=== PATIENT | female | born 1985 | race African-American/Black ===

== ENCOUNTER 2023-10-30 09:05 | Emergency (ER) | payer MEDICAID ==
[~2023-10-30] VITALS: Ht 152.4 cm; Wt 81.0 kg
[~2023-10-30 09:05] MED LIST: LEVO500T2 PO; TOPUD PO
[2023-10-30 09:08] VITALS: BP 97/71; PULSE 79; RESP 16; TEMP 98.9; O2SAT 100
[2023-10-30 09:38] LABS: CLARITY URINE CLOUDY (CLEAR); COLOR URINE YELLOW (YELLOW); GLUCOSE URINE NEGATIVE (NEGATIVE); KETONES URINE NEGATIVE (NEGATIVE); LEUKOCYTE ESTERASE URINE 3+ (NEGATIVE); NITRITE URINE POSITIVE (NEGATIVE); OCCULT BLOOD URINE TRACE (NEGATIVE); PH URINE 6.5 (4.5-8.0); PROTEIN URINE NEGATIVE (NEGATIVE); SPECIFIC GRAVITY URINE 1.011 (1.005-1.030); UROBILINOGEN URINE 0.2 E.U./dL (0.2-1.0)
[2023-10-30] MEDS ORDERED: CEPH500C2 MT (10:14)
[2023-10-30] MEDS ORDERED: DIPH25CA83 MT (10:14)
[2023-10-30 10:21] LABS: SQUAMOUS EPITHELIAL CELL URINE 1+ /lpf (RARE/1+); WBC URINE 15-25 /hpf (0-2)
[2023-10-30 10:22] LABS: BACTERIA URINE 4+; YEAST URINE NONE SEEN
[2023-10-30] MEDS ORDERED: DIPH25TA62 MT (10:25)
== END 2023-10-30 10:37 | disposition home or self-care (01) ==
LOC: ER 09:05
DX: T78.40XA Allergy, unspecified, initial encounter (principal); N39.0 Urinary tract infection, site not specified; J45.909 Unspecified asthma, uncomplicated; F12.90 Cannabis use, unspecified, uncomplicated; Z98.890 Other specified postprocedural states
CPT/HCPCS: 81003; 81025; 87077; 87186; 99283

== ENCOUNTER 2024-06-16 10:01 | Emergency (ER) | payer MEDICAID ==
[~2024-06-16] VITALS: Ht 152.4 cm; Wt 80.0 kg
[~2024-06-16 10:01] MED LIST changes: +CEPH500C2 MT; +DIPH25CA83 MT; +DIPH25TA62 MT
[2024-06-16 10:08] VITALS: O2SAT 99
[2024-06-16 10:11] VITALS: BP 122/98; PULSE 87; RESP 16; TEMP 98.4; O2SAT 100
[2024-06-16] MEDS: KETOROLAC 30MG/ML VIAL IM ONE (12:05)
[2024-06-16] MEDS ORDERED: IBUP-2029 MT (13:44)
== END 2024-06-16 14:05 | disposition home or self-care (01) ==
LOC: ER 10:29
DX: R51.9 Headache, unspecified (principal); M54.50 Low back pain, unspecified; F12.10 Cannabis abuse, uncomplicated; J45.909 Unspecified asthma, uncomplicated; Z79.899 Other long term (current) drug therapy; Z91.012 Allergy to eggs; W10.9XXA Fall (on) (from) unspecified stairs and steps, initial encounter; Y93.89 Activity, other specified; Y92.89 Other specified places as the place of occurrence of the external cause; Y99.8 Other external cause status
CPT/HCPCS: 99285; 70486; 73502; 72110; 73110; 96372; J1885